=== PATIENT | male | born 1995 | race Caucasian/White ===

== ENCOUNTER 2020-08-06 07:44 | Emergency (ER) | payer OTHER ==
[~2020-08-06] VITALS: Ht 185.4 cm; Wt 95.5 kg
[2020-08-06 08:29] LABS: BASO % 1 % (0-3); EOS # 0.3 x10^3/uL (0.0-0.7); EOS % 5 % (0-3); HEMATOCRIT 45.3 % (39.0-53.0); HEMOGLOBIN 15.6 g/dL (13.0-17.5); LYMPH # 1.6 x10^3/uL (1.0-4.8); LYMPH % 22 % (24-48); MEAN CORPUSCULAR HEMOGLOBIN 31 pg (25-35); MEAN CORPUSCULAR HGB CONC 34 g/dL (31-37); MEAN CORPUSCULAR VOLUME 89 fL (79-100); MONO # 0.7 x10^3/uL (0.0-1.1); MONO % 9 % (0-9); NEUT # 4.5 x10^3uL (1.8-7.7); NEUT % 63 % (31-73); PLATELET COUNT 204 x10^3/uL (140-400); RED BLOOD COUNT 5.09 x10^6/uL (4.30-5.70); RED CELL DISTRIBUTION WIDTH 12.3 % (11.5-14.5); WHITE BLOOD COUNT 7.2 x10^3/uL (4.0-11.0)
--- NOTE | 2020-08-06 08:32 | RAD ---
Exam Date: 08/06/2020 8:17 AM XR CHEST 2V Indication: Reason: cough and chest pain / Spl. Instructions: / History: FINDINGS/ IMPRESSION: The cardiac silhouette and pulmonary vasculature are within normal limits. There is no focal consolidation, pleural effusion or pneumothorax. The visualized osseous structures are intact. Electronically signed by: Siddhartha Briggs MD (08/06/2020 8:30 AM) [id number]
[2020-08-06 08:40] LABS: CALCIUM 9.2 mg/dL (8.5-10.1); CREATININE 1.1 mg/dL (0.7-1.3); POTASSIUM 3.9 mmol/L (3.5-5.1)
--- NOTE | 2020-08-06 08:41 | PHYS DOC ---
Past History Past Medical History: No Pertinent History Past Surgical History: No Surgical History Alcohol Use: Occasionally Adult General Chief Complaint Chief Complaint: CHEST PAIN HPI HPI Patient is a 25-year-old male presenting with chest pain associated with cough. Reports productive cough began approximately 2 to 3 days ago and has been worsening. He reports associated chest pain that begins midsternal and radiated radiates around his chest from the left to the right that acutely worsens when he coughs. Also reports headache associated with cough. Has tried Tylenol for his symptoms however reports the Tylenol was minimally effective. Denies fevers at home, known COVID-19 exposures, nausea, vomiting, diarrhea, shortness of breath, syncope, or known trauma to the chest. 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 Review of Systems Review of Systems Fourteen body systems of review of systems have been reviewed. See HPI for pertinent positives and negative responses, other venegas all other systems are negative, non-pertinent or non-contributory Allergies Allergies Allergies Coded Allergies Type Severity Reaction Last Updated Verified No Known Drug Allergies 08/06/20 No Physical Exam Physical Exam Constitutional: Well developed, well nourished, no acute distress, non-toxic appearance. HENT: Normocephalic, atraumatic, bilateral external ears normal, oropharynx moist, no oral exudates, nose normal. Eyes: PERRLA, EOMI, conjunctiva normal, no discharge. Neck: Normal range of motion, no tenderness, supple, no stridor. Cardiovascular: Heart rate regular, sinus rhythm, no murmurs rubs or gallops Lungs & Thorax: Bilateral breath sounds clear to auscultation productive cough on exam Abdomen: Bowel sounds normal, soft, no tenderness, no masses, no pulsatile masses. Nonsurgical abdomen, no peritoneal signs Skin: Warm, dry, no erythema, no rash. Back: No tenderness, no CVA tenderness. Extremities: No tenderness, no cyanosis, no clubbing, ROM intact, no edema. Neurologic: Alert and oriented X 3, grossly normal motor & sensory function, no focal deficits noted. Psychologic: Affect normal, judgement normal, mood normal. Current Patient Data Vital Signs Vital Signs Date Time Temp Pulse Resp B/P (MAP) Pulse Ox O2 Delivery O2 Flow Rate FiO2 08/06/20 07:52 99.6 96 16 130/57 (81) 95 Room Air Lab Results Laboratory Tests Test 08/06/20 08:10 White Blood Count 7.2 x10^3/uL Red Blood Count 5.09 x10^6/uL Hemoglobin 15.6 g/dL Hematocrit 45.3 % Mean Corpuscular Volume 89 fL Mean Corpuscular Hemoglobin 31 pg Mean Corpuscular Hemoglobin Concent 34 g/dL Red Cell Distribution Width 12.3 % Platelet Count 204 x10^3/uL Neutrophils (%) (Auto) 63 % Lymphocytes (%) (Auto) 22 % Monocytes (%) (Auto) 9 % Eosinophils (%) (Auto) 5 % Basophils (%) (Auto) 1 % Neutrophils # (Auto) 4.5 x10^3uL Lymphocytes # (Auto) 1.6 x10^3/uL Monocytes # (Auto) 0.7 x10^3/uL Eosinophils # (Auto) 0.3 x10^3/uL Basophils # (Auto) 0.0 x10^3/uL Sodium Level 139 mmol/L Potassium Level 3.9 mmol/L Chloride Level 102 mmol/L Carbon Dioxide Level 30 mmol/L Anion Gap 7 Blood Urea Nitrogen 11 mg/dL Creatinine 1.1 mg/dL Estimated GFR (Cockcroft-Gault) 83.0 BUN/Creatinine Ratio 10 Glucose Level 106 mg/dL Calcium Level 9.2 mg/dL Total Bilirubin 0.9 mg/dL Aspartate Amino Transf (AST/SGOT) 12 U/L Alanine Aminotransferase (ALT/SGPT) 25 U/L Alkaline Phosphatase 123 U/L Total Protein 7.6 g/dL Albumin 4.2 g/dL Albumin/Globulin Ratio 1.2 Current Medications Medications (Trade) Dose Ordered Sig/Donald Route PRN Reason Start Time Stop Time Status Last Admin Dose Admin Ketorolac Tromethamine (Toradol 15mg Vial) 15 mg 1X ONCE IM 08/06/20 08:45 08/06/20 09:04 DC 08/06/20 09:00 Sodium Chloride 1,000 ml @ 75 mls/hr 1X ONCE IV 08/06/20 08:45 08/06/20 22:04 08/06/20 08:59 EKG EKG EKG repeat interpreted at 0847 in the morning displays ventricular rate of 91 bpm with normal sinus rate and rhythm no ST elevation normal intervals. Radiology/Procedures Radiology/Procedures Exam Date: 08/06/2020 8:17 AM XR CHEST 2V Indication: Reason: cough and chest pain / Spl. Instructions: / History: FINDINGS/ IMPRESSION: The cardiac silhouette and pulmonary vasculature are within normal limits. There is no focal consolidation, pleural effusion or pneumothorax. The visualized osseous structures are intact. Electronically signed by: Siddhartha Briggs MD (08/06/2020 8:30 AM) [id number] Heart Score C/O Chest Pain: No HEART Score for Chest Pain: HEART Score for Chest Pain Response (Comments) Value History Slighlty/Non-Suspicious 0 Age < 45 0 Risk Factors No Risk Factors 0 Total 0 Risk Factors: Risk Factors: DM, Current or recent (<one month) smoker, HTN, HLP, family history of CAD, obesity. Risk Scores: Risk Factors: DM, Current or recent (<one month) smoker, HTN, HLP, family history of CAD, obesity. Course & Med Decision Making Course & Med Decision Making 25-year-old male presents with concerns due to cough. On exam he was well- appearing with vitals that were within normal limits and nonfebrile. His physical exam displayed no abnormalities. CBC CMP chest x-ray and EKG were ordered which were all within normal limits. Patient was given some Toradol for symptomatic improvement and tested for COVID-19. Disclosed low risk of other potential diagnoses but at present, no indication for further diagnostic workup in ER. He was discharged home with supportive care and told to continue drinking fluids, use ibuprofen or Tylenol as needed, and to stop smoking. Patient was given return precautions and vocalized agreement with plan of care and understanding of return precautions. Patient to call PCP today to discuss next steps of care and when it's safe to follow-up Dragon Disclaimer Dragon Disclaimer This electronic medical record was generated, in whole or in part, using a voice recognition dictation system. Departure Departure: Impression: Primary Impression: Viral syndrome Additional Impression: Person under investigation for COVID-19 Disposition: 01 DC HOME SELF CARE/HOMELESS Condition: STABLE Referrals: PCP,NO (PCP) Patient Instructions: Viral Syndrome Additional Instructions: You were seen today for cough due to suspected upper respiratory infection. We have tested you for COVID-19 and will call you with the results. All other blood work chest x-ray and EKG displayed no abnormalities. We recommend you pursue supportive care at home by continuing to drink fluids and using ibuprofen or Tylenol as needed for pain management. If you to develop worsening shortness of breath, chest pain, or any other signs or symptoms that concern you please return for reevaluation. Problem Qualifiers ARTI BURGESS DO Aug 06, 2020 08:41
[2020-08-06] MEDS ORDERED: KETOROLAC 15 MG/ML VIAL. IM ONE (08:45)
[2020-08-06] MEDS ORDERED: IV NORMAL SALINE 1,000ML 1,000 ML IV ONE (08:45)
[2020-08-06 08:48] LABS: ALBUMIN 4.2 g/dL (3.4-5.0); ALBUMIN/GLOBULIN RATIO 1.2 (1.0-1.7); TOTAL BILIRUBIN 0.9 mg/dL (0.2-1.0); TOTAL PROTEIN 7.6 g/dL (6.4-8.2)
[2020-08-06 09:37] VITALS: BP 121/88
--- NOTE | 2020-08-07 06:31 | EKG ---
[address] [address] Test Date: 2020-08-06 Test Time: 08:52:25 Pat Name: MAHESH LAWSON Department: Room: Gender: M [employer] Director: : 1995 Requested By: ARTI BURGESS Order Number: [id number] Reading MD: Measurements Intervals [place] Rate: 91 P: 62 SC: 152 QRS: 72 QRSD: 100 T: 27 QT: 340 QTc: 420 Interpretive Statements SINUS RHYTHM OTHERWISE NORMAL ECG RI6.02 No previous ECG available for comparison
== END 2020-08-06 09:37 | disposition home or self-care (01) ==
LOC: ER 07:44
DX: B34.9 Viral infection, unspecified (principal); Z20.822 Contact with and (suspected) exposure to COVID-19
CPT/HCPCS: 36415; 71046; 80053; 85025; 93005; 96360; 96372; 99285; C9803; J1885; J7030; U0003; U0005

== ENCOUNTER 2020-09-20 23:31 | Emergency (ER) | payer OTHER ==
[~2020-09-20] VITALS: Ht 188 cm; Wt 90.5 kg
--- NOTE | 2020-09-21 | PHYS DOC ---
Past History Past Medical History: No Pertinent History Past Surgical History: No Surgical History Alcohol Use: Occasionally General Adult HPI: HPI: ".. The last two days.. I ve had fever, chills, body hurts.. my back hurts.. shakes.." " I just hurt all over... like I got the flu.. 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 Patient has not completed his Covid vaccination. No recent assignment overseas. No recent travel. No specific ill contacts. 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 Patient normally healthy. Up-to-date with other vaccinations. Review of Systems: Review of Systems: Constitutional: Complains of fever or chills Eyes: Denies change in visual acuity HENT: Complains of nasal congestion or sore throat Respiratory: Complains of cough and wheezing Cardiovascular: Complains of chest pain . GI: Denies abdominal pain, nausea, vomiting, bloody stools or diarrhea : Denies dysuria Musculoskeletal: Complains of muscle, s back pain or joint pain Integument: Denies rash Neurologic: Denies headache, focal weakness or sensory changes Endocrine: Denies polyuria or polydipsia Lymphatic: Denies swollen glands Psychiatric: Denies depression or anxiety Family History: Family History: Noncontributory to presentation Current Medications: Current Meds: See nursing for home meds Allergies: Allergies: Allergies Coded Allergies Type Severity Reaction Last Updated Verified No Known Drug Allergies 08/06/20 No Physical Exam: PE: Constitutional: Well developed, well nourished, no acute distress, non-toxic appearance. [] HENT: Normocephalic, atraumatic, bilateral external ears normal, oropharynx dry , no oral exudates, nose normal. [] Eyes: PERRLA, EOMI, conjunctiva normal, no discharge. [] Neck: Normal range of motion, no tenderness, supple, no stridor. [] Cardiovascular:Heart rate regular rhythm, no murmur [] Lungs & Thorax: Bilateral breath sounds clear to auscultation [] Abdomen: Bowel sounds normal, soft, no tenderness, no masses, no pulsatile masses. [] Skin: Warm, dry, no erythema, no rash. [] Back: No tenderness, no CVA tenderness. [] Extremities: No tenderness, no cyanosis, no clubbing, ROM intact, no edema. [] Neurologic: Alert and oriented X 3, normal motor function, normal sensory function, no focal deficits noted. [] Psychologic: Affect anxious,, judgement normal, mood normal. [] EKG: EKG: My interpretation EKG shows sinus rhythm at 71 bpm. No acute findings. [] Radiology/Procedures: Radiology/Procedures: [][address] [address] IMAGING REPORT Signed PATIENT: MIKKI BAPTISTE ACCOUNT: [id number] : 01/19/2018 LOCATION: ER AGE: 08M 04D SEX: F EXAM STATUS: PRE ER ORD. PHYSICIAN: SUNDAY NAJERA MD REASON: dyspnea PROCEDURE: CHEST AP ONLY XR CHEST 1V Clinical History: Reason: dyspnea / Spl. Instructions: / History: Technique: AP view of the chest was obtained at 09/21/2020 1:05 AM. Comparison: None. Findings: The heart is normal in size. The pulmonary vessels appear normal. The lungs and pleural margins are clear. Impression: No evidence of an acute cardiopulmonary process. Electronically signed by: Eber Carlos III, MD (09/21/2020 1:34 AM) [facility] DICTATED AND SIGNED BY: EBER CARLOS III, MD DATE: 09/21/20 0132 CC: SUNDAY NAJERA MD; BRITANY TORRES MD ~MTH0 0 Heart Score: C/O Chest Pain: Yes HEART Score for Chest Pain: HEART Score for Chest Pain Response (Comments) Value History Slighlty/Non-Suspicious 0 ECG Normal 0 Age < 45 0 Risk Factors No Risk Factors 0 Troponin < Normal Limit 0 Total 0 Risk Factors: Risk Factors: DM, Current or recent (<one month) smoker, HTN, HLP, family history of CAD, obesity. Risk Scores: Score 0 - 3: 2.5% MACE over next 6 weeks - Discharge Home Score 4 - 6: 20.3% MACE over next 6 weeks - Admit for Clinical Observation Score 7 - 10: 72.7% MACE over next 6 weeks - Early Invasive Strategies Course & Med Decision Making: Course & Med Decision Making Pertinent Labs and Imaging studies reviewed. (See chart for details). Patient to push fluids. Patient take Tylenol and ibuprofen for discomfort. Patient follow-up at [place]. Patient to consider rapid Covid testing at [place]. Follow-up Covid testing here. Recommend self-isolation until Covid test comes back or obtain rapid Covid testing. Return if any concerns. Went over this acute illness would recommend that he get Covid vaccination. Impression- 1. Viral syndrome 2. Dehydration [] Amy Disclaimer: Amy Disclaimer: This electronic medical record was generated, in whole or in part, using a voice recognition dictation system. Departure Departure: Referrals: PCP,NO (PCP) SUNDAY NAJERA MD September 21, 2020 00:00
[2020-09-21] MEDS ORDERED: ASPIRIN CHEWABLE 81 MG TABLET. PO ONE (00:30)
[2020-09-21] MEDS ORDERED: IV RINGERS SOLUTION,LACTATED 1,000 ML IV SCH (00:30)
[2020-09-21 01:20] LABS: BASO % 0 % (0-3); EOS # 0.2 x10^3/uL (0.0-0.7); EOS % 2 % (0-3); HEMATOCRIT 46.9 % (39.0-53.0); HEMOGLOBIN 16.1 g/dL (13.0-17.5); LYMPH # 2.2 x10^3/uL (1.0-4.8); LYMPH % 34 % (24-48); MEAN CORPUSCULAR HEMOGLOBIN 31 pg (25-35); MEAN CORPUSCULAR HGB CONC 34 g/dL (31-37); MEAN CORPUSCULAR VOLUME 90 fL (79-100); MONO # 0.5 x10^3/uL (0.0-1.1); MONO % 8 % (0-9); NEUT # 3.6 x10^3uL (1.8-7.7); NEUT % 56 % (31-73); PLATELET COUNT 215 x10^3/uL (140-400); RED BLOOD COUNT 5.23 x10^6/uL (4.30-5.70); RED CELL DISTRIBUTION WIDTH 12.9 % (11.5-14.5); WHITE BLOOD COUNT 6.5 x10^3/uL (4.0-11.0)
--- NOTE | 2020-09-21 01:22 | RAD ---
XR CHEST 1V Clinical History: Reason: cp / Spl. Instructions: / History: Technique: AP view of the chest was obtained at 09/21/2020 12:21 AM. Comparison: August 06, 2020. Findings: The cardiomediastinal silhouette is normal. The pulmonary vasculature is normal. The lungs and pleura l margins are clear. Impression: No evidence of an acute cardiopulmonary process. Electronically signed by: Jose Alejandro Duong III, MD (09/21/2020 1:19 AM) [facility]
[2020-09-21 01:26] LABS: CALCIUM 9.2 mg/dL (8.5-10.1); GFR 92.6; POTASSIUM 3.6 mmol/L (3.5-5.1)
[2020-09-21 01:38] LABS: ALBUMIN 4.2 g/dL (3.4-5.0); DIRECT BILIRUBIN 0.2 mg/dL (0.0-0.2); MAGNESIUM 2.1 mg/dL (1.8-2.4); TOTAL BILIRUBIN 0.9 mg/dL (0.2-1.0); TOTAL PROTEIN 7.4 g/dL (6.4-8.2)
[2020-09-21 01:54] LABS: INFLUENZA A PATIENT NEGATIVE (NEGATIVE); INFLUENZA B PATIENT NEGATIVE (NEGATIVE)
[2020-09-21 02:12] LABS: BILIRUBIN,URINE SMALL (NEG); CLARITY,URINE CLEAR; COLOR,URINE YELLOW; GLUCOSE,URINE NEG (NEG)
[2020-09-21 02:13] LABS: BACTERIA,URINE 0 /HPF (0-FEW); NITRITE,URINE NEG (NEG); SQUAMOUS EPITHELIAL CELL,UR OCC /LPF; UROBILINOGEN,URINE 0.2 mg/dL (0.2 mg/dL); WBC,URINE 0 /HPF (0-4)
[2020-09-21 02:35] VITALS: BP 120/70
--- NOTE | 2020-09-21 06:42 | EKG ---
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
== END 2020-09-21 02:53 | disposition home health service (06) ==
LOC: ER 23:31
DX: B34.9 Viral infection, unspecified (principal); E86.0 Dehydration
CPT/HCPCS: 36415; 71045; 80048; 80076; 81001; 82550; 83735; 83880; 84443; 84484; 85025; 85379; 85610; 85730; 87070; 87804; 87880; 93005; 96360; 99285; J7120

== ENCOUNTER 2020-10-05 12:28 | Emergency (ER) | payer OTHER ==
[~2020-10-05] VITALS: Ht 185.4 cm; Wt 94.2 kg
[2020-10-05 12:35] VITALS: BP 117/75
[2020-10-05] MEDS ORDERED: KETOROLAC 15 MG/ML VIAL. IM ONE (12:45)
[2020-10-05] MEDS ORDERED: ORPH-16 PO (13:07)
--- NOTE | 2020-10-05 13:08 | PHYS DOC ---
Past History Past Medical History: No Pertinent History Past Surgical History: Other Additional Past Surgical Histo: wisdom teeth out Alcohol Use: Occasionally General Adult EDM: Chief Complaint: BACK PAIN OR INJURY HPI: HPI: Patient is a 25-year-old male presents with lower back pain that radiates down bilateral legs. Patient states that symptoms started 2 weeks ago. Patient denies any known injury. Patient was seen in urgent care yesterday and given a Toradol injection along with prescription for Flexeril. Patient does report that medications are helping, but as soon as the medication wears off he continues to have pain. Patient denies urinary retention or loss of bowel. Patient has health history of ADHD. Review of Systems: Review of Systems: Constitutional: Denies fever or chills Eyes: Denies change in visual acuity HENT: Denies nasal congestion or sore throat Respiratory: Denies cough or shortness of breath Cardiovascular: Denies chest pain or edema GI: Denies abdominal pain, nausea, vomiting, bloody stools or diarrhea : Denies dysuria Musculoskeletal: Reports lower back pain, denies joint pain Integument: Denies rash Neurologic: Denies headache, focal weakness or sensory changes Endocrine: Denies polyuria or polydipsia Lymphatic: Denies swollen glands Psychiatric: Denies depression or anxiety Current Medications: Current Meds: Current Medications Medications (Trade) Dose Ordered Sig/Donald Start Time Stop Time Status Last Admin Dose Admin Ketorolac Tromethamine (Toradol 15mg Vial) 15 mg 1X ONCE 10/05/20 12:45 10/05/20 12:49 DC Allergies: Allergies: Allergies Coded Allergies Type Severity Reaction Last Updated Verified No Known Drug Allergies 08/06/20 No Physical Exam: PE: Constitutional: Well developed, well nourished, no acute distress, non-toxic appearance. [] HENT: Normocephalic, atraumatic, bilateral external ears normal, oropharynx moist, no oral exudates, nose normal. [] Eyes: PERRLA, EOMI, conjunctiva normal, no discharge. [] Neck: Normal range of motion, no tenderness, supple, no stridor. [] Cardiovascular:Heart rate regular rhythm, no murmur [] Lungs & Thorax: Bilateral breath sounds clear to auscultation [] Abdomen: Bowel sounds normal, soft, no tenderness, no masses, no pulsatile masses. [] Skin: Warm, dry, no erythema, no rash. [] Back: Lower back tenderness, no CVA tenderness. [] Extremities: No tenderness, no cyanosis, no clubbing, ROM intact, no edema. [] Neurologic: Alert and oriented X 3, normal motor function, normal sensory function, no focal deficits noted. [] Psychologic: Affect normal, judgement normal, mood normal. [] Current Patient Data: Vital Signs: Vital Signs Date Time Temp Pulse Resp B/P (MAP) Pulse Ox O2 Delivery O2 Flow Rate FiO2 10/05/20 12:35 97.3 96 16 117/75 (89) 98 Room Air EKG: EKG: [] Radiology/Procedures: Radiology/Procedures: [] Heart Score: C/O Chest Pain: No Risk Factors: Risk Factors: DM, Current or recent (<one month) smoker, HTN, HLP, family history of CAD, obesity. Risk Scores: Score 0 - 3: 2.5% MACE over next 6 weeks - Discharge Home Score 4 - 6: 20.3% MACE over next 6 weeks - Admit for Clinical Observation Score 7 - 10: 72.7% MACE over next 6 weeks - Early Invasive Strategies Course & Med Decision Making: Course & Med Decision Making Pertinent Labs and Imaging studies reviewed. (See chart for details) [] 25-year-old male presents with lower back pain that radiates down bilateral legs. Patient denies known injury. Denies loss of bowel or urinary retention. Negative for saddle anesthesia. No indication for imaging at this time. Patient given injection of Toradol for pain and sent home with prescription for Norflex. Patient can continue taking ibuprofen at home for pain. patient given a work note for 2 days and instructed to follow-up with his PCP at [place] for further management and evaluation. Patient agrees with discharge plan and is appreciative. Amy Disclaimer: Amy Disclaimer: This electronic medical record was generated, in whole or in part, using a voice recognition dictation system. Departure Departure: Impression: Primary Impression: Sciatic nerve pain Qualified Codes: M54.30 - Sciatica, unspecified side Additional Impression: Lower back pain Qualified Codes: M54.42 - Lumbago with sciatica, left side; M54.41 - Lumbago with sciatica, right side Disposition: 01 HOME / SELF CARE / HOMELESS Condition: STABLE Referrals: PCP,NO (PCP) Patient Instructions: Sciatica, [id number] Additional Instructions: You are seen in the emergency room for lower back pain. You were given a injection of Toradol in the emergency room and sent home with Norflex which is a muscle relaxer. You can continue taking ibuprofen for discomfort. Please follow-up with your PCP for further management. Return to the emergency room with worsening symptoms or concerns. EMERGENCY DEPARTMENT GENERAL DISCHARGE INSTRUCTIONS Thank you for coming to [facility] ([facility]) today and trusting us with you care. We trust that you had a positivie experience in our Emergency Department. If you wish to speak to the department management, you may call the director at [phone]. YOUR FOLLOW UP INSTRUCTIONS ARE FOLLOWS: 1. Do you have a private Doctor? If you do not have a private doctor, please ask for a resource list of physicians or clinics that may be able to assist you with follow up care. 2. The Emergency Physician has interpreted your x-rays. The X-Ray specialist will also review them. If there is a change in the findings, you will be notified in 48 hours when at all possible. 3. A lab test or culture has been done, your results will be reviewed and you will be notified if you need a change in treatment. ADDITIONAL INSTRUCTIONS AND INFORMATION: 1. Your care today has been supervised by a physician who is specially trained in emergency care. Many problems require more than one evaluation for a complete diagnosis and treatment. We recommend that you schedule your follow up appointment as recommended to ensure complete treatment of you illness or injury. If you are unable to obtain follow up care and continue to have a problem, or if your condition worsens, we recommend that you return to the ED. 2. We are not able to safely determine your condition over the phone nor are we able to give sound medical advice over the phone. For these safety reasons, if you call for medical advice we will ask you to come to the ED for further evaluation. 3. If you have any questions regarding these discharge instructions please call the ED at [phone]. SAFETY INFORMATION: In the interest of safety, wellness, and injury prevention; we encourage you to wear your sealbelt, if you smoke; quite smoking, and we encourage family to use a protec tive helmet for bicycling and other sporting events that present an increased risk for head injury. IF YOUR SYMPTOMS WORSEN OR NEW SYMPTOMS DEVELOP, OR YOU HAVE CONCERNS ABOUT YOUR CONDITION; OR IF YOUR CONDITION WORSENS WHILE YOU ARE WAITING FOR YOUR FOLLOW UP APPOINTMENT; EITHER CONTACT YOUR PRIMARY CARE DOCTOR, THE PHYSICIAN WHOSE NAME AND NUMBER YOU WERE GIVEN, OR RETURN TO THE ED IMMEDIATELY. Scripts Orphenadrine Citrate (ORPHENADRINE CITRATE) 100 Mg Tablet.er 1 TAB PO BID for back pain for 7 Days, #14 TAB 1 Refill Prov: TWIN EGAN APRN 10/05/20 TWIN EGAN APRN Oct 05, 2020 13:07
== END 2020-10-05 13:35 | disposition home or self-care (01) ==
LOC: ER 12:28
DX: M54.41 Lumbago with sciatica, right side (principal); M54.42 Lumbago with sciatica, left side
CPT/HCPCS: 96372; 99283; J1885

== ENCOUNTER 2020-10-10 13:18 | Emergency (ER) | payer OTHER ==
[~2020-10-10] VITALS: Ht 188 cm; Wt 100.0 kg
[~2020-10-10 13:18] MED LIST: ORPH-16 PO
[2020-10-10] MEDS ORDERED: IBUPROFEN 600 MG TABLET. PO ONE (14:45)
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
[2020-10-10 15:21] LABS: BASO % 1 % (0-3); EOS # 0.2 x10^3/uL (0.0-0.7); EOS % 3 % (0-3); HEMATOCRIT 48.8 % (39.0-53.0); HEMOGLOBIN 16.6 g/dL (13.0-17.5); LYMPH # 2.3 x10^3/uL (1.0-4.8); LYMPH % 38 % (24-48); MEAN CORPUSCULAR HEMOGLOBIN 30 pg (25-35); MEAN CORPUSCULAR HGB CONC 34 g/dL (31-37); MEAN CORPUSCULAR VOLUME 89 fL (79-100); MONO # 0.5 x10^3/uL (0.0-1.1); MONO % 9 % (0-9); NEUT # 2.9 x10^3uL (1.8-7.7); NEUT % 49 % (31-73); PLATELET COUNT 232 x10^3/uL (140-400); RED BLOOD COUNT 5.51 x10^6/uL (4.30-5.70); RED CELL DISTRIBUTION WIDTH 12.8 % (11.5-14.5); WHITE BLOOD COUNT 5.9 x10^3/uL (4.0-11.0)
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
[2020-10-10 15:32] LABS: CALCIUM 9.4 mg/dL (8.5-10.1); GFR 92.6; POTASSIUM 4.4 mmol/L (3.5-5.1)
[2020-10-10 15:37] LABS: ALBUMIN 4.4 g/dL (3.4-5.0); ALBUMIN/GLOBULIN RATIO 1.3 (1.0-1.7); TOTAL BILIRUBIN 0.7 mg/dL (0.2-1.0); TOTAL PROTEIN 7.7 g/dL (6.4-8.2)
--- NOTE | 2020-10-10 16:09 | EKG ---
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
[2020-10-10 16:58] LABS: BARBITURATES NEG (NEG); BENZODIAZEPINES NEG (NEG); CANNABINOIDS NEG (NEG); COCAINE NEG (NEG); METHADONE NEG (NEG); OPIATES NEG (NEG); PHENCYCLIDINE NEG (NEG)
[2020-10-10 17:04] LABS: AMPHETAMINE/METHAMPHETAMINE NEG (NEG)
[2020-10-10 17:09] LABS: BILIRUBIN,URINE NEG (NEG); CLARITY,URINE CLEAR; COLOR,URINE YELLOW; GLUCOSE,URINE NEG (NEG); NITRITE,URINE NEG (NEG); UROBILINOGEN,URINE 0.2 mg/dL (0.2 mg/dL)
[2020-10-10 17:10] LABS: BACTERIA,URINE 0 /HPF (0-FEW); RBC,URINE 0 /HPF (0-2); WBC,URINE 0 /HPF (0-4)
[2020-10-10 17:48] VITALS: BP 129/90
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
== END 2020-10-10 18:06 | disposition home or self-care (01) ==
LOC: ER 13:18
DX: M25.512 Pain in left shoulder (principal); M25.522 Pain in left elbow; M25.532 Pain in left wrist; R55 Syncope and collapse; V49.9XXA Car occupant (driver) (passenger) injured in unspecified traffic accident, initial encounter; Y93.89 Activity, other specified; Y92.89 Other specified places as the place of occurrence of the external cause; Y99.8 Other external cause status
CPT/HCPCS: 36415; 70450; 72125; 73030; 73080; 73110; 80053; 80307; 81001; 84484; 85025; 93005; 99285-25

== ENCOUNTER 2020-12-26 21:49 | Emergency (ER) | payer OTHER ==
[~2020-12-26] VITALS: Ht 188 cm; Wt 100.0 kg
[2020-12-26 21:59] VITALS: BP 125/63
[2020-12-26] MEDS ORDERED: ONDANSETRON ODT 4 MG TAB.RAPDIS PO ONE (22:00)
--- NOTE | 2020-12-26 22:01 | PHYS DOC ---
Past History Past Medical History: No Pertinent History (MISTY FENTON APRN) Past Surgical History: No Surgical History Additional Past Surgical Histo: wisdom teeth out (MISTY FENTON APRN) Alcohol Use: None (MISTY FENTON APRN) General Adult EDM: Chief Complaint: GENERALIZED BODY ACHES HPI: HPI: Is a 25-year-old male being seen in the ER for nausea and generalized body aches after receiving his first Pfizer vaccine. Patient denies fevers, cough, vomiting, diarrhea. He has not taken anything for his symptoms. Patient states that he is able to tolerate oral intake. His vital signs are stable and he is in no acute distress. (MISTY FENTON APRN) Review of Systems: Review of Systems: 14 body systems of the review of systems have been reviewed. See HPI for pertinent positive and negative responses, otherwise all other systems are negative, nonpertinent or noncontributory (MISTY FENTON APRN) Current Medications: Current Meds: Current Medications Medications (Trade) Dose Ordered Sig/Donald Start Time Stop Time Status Last Admin Dose Admin Ondansetron HCl (Zofran Odt) 4 mg 1X ONCE 12/26/20 22:00 12/26/20 22:01 UNV 12/26/20 21:57 4 MG (MISTY FENTON APRN) Allergies: Allergies: Allergies Coded Allergies Type Severity Reaction Last Updated Verified No Known Drug Allergies 08/06/20 No (MISTY FENTON APRN) Physical Exam: PE: Constitutional: Well developed, well nourished, no acute distress, non-toxic appearance. [] HENT: Normocephalic, atraumatic, bilateral external ears normal, oropharynx moist, no oral exudates, nose normal. [] Eyes: PERRL, EOMI, conjunctiva normal, no discharge. [] Neck: Normal range of motion, no stridor Cardiovascular: Normal peripheral perfusion Lungs & Thorax: Normal work of breathing, no tachypnea n [] Abdomen: Bowel sounds normal, soft, no tenderness, no masses, no pulsatile masses. [] Skin: Warm, dry, no erythema, no rash. [] Back: Normal range of motion Extremities: No tenderness, no cyanosis, no clubbing, ROM intact, no edema. [] Neurologic: Alert and oriented X 3, normal motor function, normal sensory function, no focal deficits noted. [] Psychologic: Affect normal, judgement normal, mood normal. [] (MISTY FENTON APRN) EKG: EKG: [] (MISTY FENTON APRN) Radiology/Procedures: Radiology/Procedures: [] (MISTY FENTON APRN) Heart Score: C/O Chest Pain: No Risk Factors: Risk Factors: DM, Current or recent (<one month) smoker, HTN, HLP, family history of CAD, obesity. Risk Scores: Score 0 - 3: 2.5% MACE over next 6 weeks - Discharge Home Score 4 - 6: 20.3% MACE over next 6 weeks - Admit for Clinical Observation Score 7 - 10: 72.7% MACE over next 6 weeks - Early Invasive Strategies (MISTY FENTON APRN) Course & Med Decision Making: Course & Med Decision Making Pertinent Labs and Imaging studies reviewed. (See chart for details) [] Patient is a 25-year-old male being seen in the ER for nausea body aches after receiving a Pfizer vaccine. Patient was given Zofran in the ER. Patient stated that he has been able to tolerate oral intake and has not vomited. Patient's vital signs are stable, he is in no acute distress. Physical exam reassuring with no signs of dehydration. Patient advised to take Tylenol/ibuprofen for his body aches at home. He will also be discharged home with a prescription for nausea medication. He was advised to increase fluids. Patient advised to follow-up with his primary care provider. I discussed with patient all findingsas well as the need to follow-up with PCP for further evaluation and treatment or return to the ER if any new or worsening symptoms. Strict return precautions were also discussed at length. Patient voiced understanding and agreement with the plan. Patient is hemodynamically stable at the time of disposition. (MISTY FENTON APRN) Course & Med Decision Making Did not see or evaluate patient. Did not discuss patient with DIRECT SERVICE PROVIDER. Agree with DIRECT SERVICE PROVIDER's work-up and disposition per note. (JANIS TOLENTINO MD) Dragon Disclaimer: Dragon Disclaimer: This electronic medical record was generated, in whole or in part, using a voice recognition dictation system. (MISTY FENTON APRN) Departure Departure: Impression: Primary Impression: Adverse effect of COVID-19 vaccine Disposition: HOME / SELF CARE / HOMELESS Condition: GOOD Referrals: PCP,NO (PCP) Patient Instructions: Nausea and Vomiting Additional Instructions: You were seen in the ER for nausea and generalized body aches following the administration of your COVID-19 vaccine. You were given nausea medication in the ER. You are also being discharged home with a prescription for this nausea medication, you can take this as needed. Please take Tylenol/ibuprofen for your body aches at home. Increase your fluids. Sticking to a bland diet may help with your nausea also, try to avoid spicy, greasy, fatty foods. Follow-up with your primary care provider tomorrow regarding your ER visit. If you develop abdominal pain, intractable nausea or vomiting, high fevers refractory to treatment, blood in your stools or vomit, lightheadedness or any new concerns please return to the ER. EMERGENCY DEPARTMENT GENERAL DISCHARGE INSTRUCTIONS Thank you for coming to [facility] (ED) today and trusting us with you care. We trust that you had a positivie experience in our Emergency Department. If you wish to speak to the department management, you may call the director at [phone]. YOUR FOLLOW UP INSTRUCTIONS ARE FOLLOWS: 1. Do you have a private Doctor? If you do not have a private doctor, please ask for a resource list of physicians or clinics that may be able to assist you with follow up care. 2. The Emergency Physician has interpreted your x-rays. The X-Ray specialist will also review them. If there is a change in the findings, you will be notified in 48 hours when at all possible. 3. A lab test or culture has been done, your results will be reviewed and you will be notified if you need a change in treatment. ADDITIONAL INSTRUCTIONS AND INFORMATION: 1. Your care today has been supervised by a physician who is specially trained in emergency care. Many problems require more than one evaluation for a complete diagnosis and treatment. We recommend that you schedule your follow up appointment as recommended to ensure complete treatment of you illness or injury. If you are unable to obtain follow up care and continue to have a problem, or if your condition worsens, we recommend that you return to the ED. 2. We are not able to safely determine your condition over the phone nor are we able to give sound medical advice over the phone. For these safety reasons, if you call for medical advice we will ask you to come to the ED for further evaluation. 3. If you have any questions regarding these discharge instructions please call the ED at [phone]. SAFETY INFORMATION: In the interest of safety, wellness, and injury prevention; we encourage you to wear your sealbelt, if you smoke; quite smoking, and we encourage family to use a protective helmet for bicycling and other sporting events that present an increased risk for head injury. IF YOUR SYMPTOMS WORSEN OR NEW SYMPTOMS DEVELOP, OR YOU HAVE CONCERNS ABOUT YOUR CONDITION; OR IF YOUR CONDITION WORSENS WHILE YOU ARE WAITING FOR YOUR FOLLOW UP APPOINTMENT; EITHER CONTACT YOUR PRIMARY CARE DOCTOR, THE PHYSICIAN WHOSE NAME AND NUMBER YOU WERE GIVEN, OR RETURN TO THE ED IMMEDIATELY. Scripts Ondansetron Hcl (ZOFRAN) 4 Mg Tablet 4 MG PO TID PRN PRN for NAUSEA for 3 Days, #9 TAB 0 Refills Prov: MISTY FENTON APRN 12/26/20 MISTY FENTON APRN Dec 26, 2020 22:01 JANIS TOLENTINO MD Dec 26, 2020 22:36
[2020-12-26] MEDS ORDERED: ONDA4TAB7 PO (22:15)
== END 2020-12-26 22:26 | disposition home or self-care (01) ==
LOC: ER 21:49
DX: R11.0 Nausea (principal); M79.10 Myalgia, unspecified site; T50.B95A Adverse effect of other viral vaccines, initial encounter; Y92.89 Other specified places as the place of occurrence of the external cause
CPT/HCPCS: 99283; Q0162